=== PATIENT | female | born 1945 | race Caucasian/White ===

== ENCOUNTER 2023-05-21 10:17 | Outpatient (CLI) | payer MEDICARE, BC, SELFPAY | END 2023-05-21 10:18 | disposition home or self-care (01) | PROVIDERS: PCP Internal Medicine; Visit Provider Internal Medicine | DX: Z00.00 Encounter for general adult medical examination without abnormal findings (principal); E78.5 Hyperlipidemia, unspecified; I10 Essential (primary) hypertension; E66.9 Obesity, unspecified; Z13.21 Encounter for screening for nutritional disorder; M85.80 Other specified disorders of bone density and structure, unspecified site | CPT/HCPCS: 80048; 80061; 82306 ==

== ENCOUNTER 2023-06-14 10:27 | Outpatient (CLI) | payer MEDICARE, BC, SELFPAY ==
--- NOTE | 2023-06-14 11:30 | CRLHL7_ITS ---
For Patients: As a result of the Cures Act, medical imaging exams and procedure reports are released immediately into your electronic medical record. You may view this report before your referring provider. If you have questions, please contact your health care provider. BILATERAL SCREENING MAMMOGRAM WITH COMPUTER-AIDED DETECTION AND TOMOSYNTHESIS TECHNIQUE: CC and MLO views were obtained. These mammographic images have been obtained using full-field digital technique. These mammographic images were interpreted with the benefit of computer-aided detection. Breast tomosynthesis was used in this interpretation. COMPARISON FILM: 05/11/22, 05/10/21. FINDINGS: There are scattered areas of fibroglandular density. IMPRESSION: There is no radiographic evidence for malignancy. ASSESSMENT: BI-RADS Category 1: Negative RECOMMENDATION: Routine screening mammogram in 1 year. A lay language report of this examination will be provided to the patient. JUSTO MAN M.D. Diagnostic/Nuclear Medicine Radiologist [email or web address] VIANNEY:reanna Transcribed: 06/14/2023, 3:[address]/Dictated by: Justo Man MD @ 06/14/2023 12:11:00 PM (Electronically Signed)
== END 2023-06-14 10:28 | disposition home or self-care (01) ==
LOC: MAMMO 10:31
PROVIDERS: PCP Internal Medicine; Visit Provider Internal Medicine
DX: Z12.31 Encounter for screening mammogram for malignant neoplasm of breast (principal)
CPT/HCPCS: 77063; 77067

== ENCOUNTER 2024-03-31 10:43 | Outpatient (CLI) | payer MEDICARE, BC, SELFPAY ==
--- OUTSIDE RECORDS SUMMARY | 2024-03-31 10:45 | XMS_ITS | Clinical Summary ---
Author Organization [facility] Address [place], [place] [address] Care Team Providers Care Flooring Grader Name Role Phone Chad Gray MD Primary Care Provider [phone] Allergies Active Allergy Reactions Criticality Noted Date Comments Hydromorphone Nausea And Vomiting 09/24/2017 Morphine Nausea And Vomiting,Confusion 2014 Shellfish Derived Nausea And Vomiting,Angioedema 09/24/2017 Medications Medication Sig Dispensed Refills Start Date End Date Status SIMVASTATIN ORAL Take 20 mg by mouth once daily in the evening. Active amoxicillin (AMOXIL) 500 mg tablet Take 2,000 mg by mouth. Take 4 tabs (2000 mg) before dental appointments Active cholecalciferol (VITAMIN D3) 1,000 unit tablet Take 1,000 Units by mouth once daily. Active losartan (COZAAR) 25 mg tablet Take 25 mg by mouth once daily. Active CALCIUM ORAL Take 1 Tab by mouth 3 times daily. Active traMADol (ULTRAM) 50 mg tabletIndications:Pr imary osteoarthritis of right knee Take 1 tablet by mouth every 4 hours if needed for pain. 50 tablet 1 09/26/2017 Active Active Problems Problem Noted Date Diagnosed Date Primary osteoarthritis of right knee 09/25/2017 Essential hypertension 09/25/2017 Mild mitral regurgitation 04/06/2017 Mild aortic insufficiency 12/29/2014 Resolved Problems Problem Noted Date Diagnosed Date Resolved Date Osteoarthritis of right knee 03/15/2017 09/25/2017 Family History Medical History Relation Name Comments Coronary artery disease Brother Hypertension Brother Coronary artery disease Father Hypertension Father Depression Mother Relation Name Status Comments Brother Father Mother Social History Tobacco Use Types Packs/Day Years Used Date Smoking Tobacco: Never Smokeless Tobacco: Never Alcohol Use Standard Drinks/Week Comments Yes 0 (1 standard drink = 0.6 oz pur e alcohol) 2 drinks per month Sex and Gender Information Value Date Recorded Sex Assigned at Not on file Gender Identity Not on file Sexual Orientation Not on file Obstetrics History Last Filed Vital Signs Vital Sign Reading Time Taken Comments Blood Pressure 133/74 09/26/2017 11:57 AM CDT Pulse 71 09/26/2017 11:57 AM CDT Temperature 36.5 ??C (97.7 ??F) 09/26/2017 11:57 AM C DT Respiratory Rate 16 09/26/2017 11:57 AM CDT Oxygen Saturation 100% 09/26/2017 11:57 AM CDT Inhaled Oxygen Concentration - - Weight 75.5 kg (166 lb 7.2 oz) 09/25/2017 12:19 PM CDT Height 159 cm (5' 2.6) 09/24/2017 10:14 AM CDT Body Mass Index 29.86 09/24/2017 10:14 AM CDT Plan of Treatment Health Maintenance Due Date Last Done Comments Tdap 1956 Depression screening for age 12+ 1957 BMI (ht and wt on same day) for age 18+ 1963 Hepatitis C screening for age 18-79 1963 Tetanus booster 1965 Zoster (shingles) series for age 50+ (1 of 2) 04/17/19 95 RSV vaccine for adults or pr egnancy (1 - 1-dose 60+ series) 2005 DEXA/DXA scan for age 65+ 2010 Pneumococcal series for age 65+ (1 of 1 - PCV) 010 COVID-19 vaccine series (1 - 2022-24 season) 4 Influenza for age 65+ 03/16/2024 Medical Devices Implanted Type Area Gas Treater Device Identifier Shelf Expiration Date Model / Serial / Lot Patella Sz29 Antonietta Ii Rnd Michelle Pors - [id number] Implanted:Qty: 1 on 09/25/2017 by Gianni Dubon MD at [facility] Total Joint Right: Knee [employer] 07/01/2027 [id number] / [id number] / [id number] Cmnt Bone 40g Simplex Hv Gentamicin - [id number] Implanted:Qty: 1 on 09/25/2017 by Gianni Dubon MD at [facility] Right: Knee [employer] 03/15/2019 [id number] / [id number] / [id number] Baseplate Tib Rt Sz 2 Traffic I Manager Journey - [id number] Implanted:Qty: 1 on 09/25/2017 by Gianni Dubon MD at [facility] Right: Knee [employer] 05/13/2027 [id number] / [id number] / [id number] Size 4 Right Bi-Cruciate Stabilized Journey Femoral Component Implanted:Qty: 1 on 09/25/2017 by Gianni Dubon MD at [facility] Explanted:at [facility] (Quantity not on file) Right: Knee [employer] 04/03/2027 [id number] / [id number] / [id number] Insert Knee Rt Sz1-2 9mm Journey Ii Bcs Bi Cruc Stbz - [id number] Implanted:Qty: 1 on 09/25/2017 by Gianni Dubon MD at [facility] Right: Knee [employer] 07/22/2026 [id number] / [id number] / [id number] Advance Directives * Full Code (Latest Code Status on File) Date Activated Date Inactivated Comments 09/25/2017 4:41 PM 09/26/2017 6:29 PM * Full Code Date Activated Date Inactivated Comments 09/25/2017 11:25 AM 09/25/2017 11:50 AM Care Teams Flooring Grader Relationship Specialty Start Date End Date Chad Gray MD PCP - General Family Practice 12/10/14
--- OUTSIDE RECORDS SUMMARY | 2024-03-31 10:46 | XMS_ITS | Encounter Summary ---
[facility] Organization [facility] Address [address] [address] Care Team Providers Care Remote Sensing Program Manager Name Role Phone Chad Gray MD Primary Care Provider Encounter Details Date Type Department Care Team ([facility] st Contact Info) Description 08/11/2015 Telephone [facility] [address] [place], [place] [phone] [place] [address] [place] [id number] Social History Tobacco Use Types Packs/Day Years Used Date Smoking Tobacco: Never Assessed Sex and Gender Information Value Date Recorded Sex Assigned at Female 05/07/2021 8:38 AM CDT Gender Identity Female 05/07/2021 8:38 AM CDT Sexual Orientation Straight 05/07/2021 8: 38 AM CDT documented as of this encounter Plan of Treatment Not on file documented as of this encounter Visit Diagnoses Not on filedocumented in this encounter Care Teams Remote Sensing Program Manager Relationship Specialty [place] [address] [place] [address] PCP - General 10/17/10 documented as of this encounter
--- OUTSIDE RECORDS SUMMARY | 2024-03-31 10:46 | XMS_ITS | Encounter Summary ---
Author [facility] Address [address], [place] [address] Care Team Providers Care Substance Abuse Rn Name Role Phone Chad Gray MD Primary Care Provider Reason for Visit * Reason Comments ERRONEOUS ENTRY Encounter Details Date Type Department Care Team ([facility] st Contact Info) Description 11/12/2023 Telephone [facility] [address] [place] [address] Chad Gray MD [address] [place] [phone] ERRONEOUS ENTRY Social History Tobacco Use Types Packs/Day Years Used Date Smoking Tobacco: Never Smokeless Tobacco: Never Alcohol Use Standard Drinks/Week Comments Yes 2 (1 standard drink = 0.6 oz pure alcohol) Wine drinking is not a weekly thing PHQ-2 Answer Date Recorded PHQ-2 Score 0 05/11/2022 Sex and Gender Information Value Date Recorded Sex Assigned at Female 05/07/2021 8:38 AM CDT Gender Identity Female 05/07/2021 8:38 AM CDT Sexual Orientation Straight 05/07/2021 8: 38 AM CDT documented as of this encounter Nursing Notes * Fátima Jones - 11/12/2023 7:14 AM CDT Error documented in this encounter Plan of Treatment Not on file documented as of this encounter Visit Diagnoses Not on filedocumented in this encounter Care Teams Substance Abuse Rn Relationship Specialty [place] [address] [place] [address] PCP - General 10/17/10 documented as of this encounter
--- OUTSIDE RECORDS SUMMARY | 2024-03-31 10:46 | XMS_ITS | Clinical Summary ---
Author Organization [facility] Address [address] [address] Care Team Providers Care Brazer Resistance Name Role Phone Chad Gray MD Primary Care Provider [phone] Source Comments You are receiving this document as you are listed as the primary care provider,follow-up provider, or the patient has been referred to you for consultation.This is in compliance with the Medicare and[facility] EHR Incentive Program,which states Providers who transition their patient to another setting of careor provider of care or refers their patient to another provider of care shouldprovide summary care record for each transition of care or referral. [facility] Active Allergy Reactions Criticality Noted Date Comments Hydromorphone Nausea And Vomiting 11/04/2008 Morphine Nausea And Vomiting,Confusion 03/05/2009 Other 11/05/2008 PN: LW Other1: -NO KNOWN LATEX ALLERGY LW Other2: -NKA Review Food Intolerance 10/17/2004 PN: LW FI1: SHELLFISH = swelling/vomit/itch LW FI2: NKA Medications Medication Sig Dispensed Refills Start Date End Date Status cholecalciferol (VITAMIN D3) 1000 UNITS tablet 1 Tablet (1,000 Units) daily. 08/27/2008 Active CALCIUM OR Take 1 tablet by mouth 3 times daily. LW Addl Instr:Take with food. 08/27/2008 Active amoxicillin (AKA AMOXIL) 500 MG tablet Take 3 Tablets (1,500 mg) by mouth as needed (Prior to dental appointments). 03/10/2015 Active calcium carbonate-vitamin D (OS-DHIRAJ 500 WITH D) 500-200 MG-UNIT per tablet Take by mouth. Active losartan (COZAAR) 25 MG tabletIndications:H ypertension Take 1 Tablet (25 mg) by mouth daily. Indications: High Blood Pressure Disorder 90 Tablet 3 05/11/2022 Active simvastatin (ZOCOR) 20 MG tabletIndications:H igh Cholesterol Take 1 Tablet (20 mg) by mouth daily at bedtime. Indications: High Cholesterol 90 Tablet 3 05/11/2022 Active Active Problems Problem Noted Date Diagnosed Date IFG (impaired fasting glucose) 05/11/2022 Skin cancer, basal cell 05/10/2021 History of adenomatous polyp of colon 03/12/2020 Overview (03/12/2020): Last colonoscopy 04/30/19, next due 04/2024. Status post right knee replacement 12/03/2017 Essential hypertension 09/25/2017 Mild mitral regurgitation 04/06/2017 Dyslipidemia 03/15/2017 Osteopenia 04/06/2016 Overview (05/21/2020): Last DEXA 05/2020, next due 05/2025. Mixed incontinence 12/15/2014 Overview (02/17/2016): urge-predominant Obesity 02/23/2010 Resolved Problems Problem Noted Date Diagnosed Date Resolved Date Age-related nuclear cataract of right eye 09/16/2021 05/11/2022 Overview (09/16/2021): Added automatically from request for surgery [id number] Age-related nuclear cataract of left eye 09/16/2021 05/11/2022 Overview (09/16/2021): Added automatically from request for surgery [id number] Osteoarthritis of right knee 03/15/2017 04/02/2018 Impaired fasting glucose 12/11/2013 Immunizations Name Administration Dates Next Due Flu Vac (3+ yrs) 06/14/2014,05/04/2013 Flu Vac Preserv Free (3+yrs) 06/11/2012, 04/19/2011,05/09/2010, 009,05/16/2008 Influenza IIV3 (Trivalent) F loc Highdose, 65+ Yrs (27760) 05/06/2019,03/13/2018,03/15/2017, 016,03/30/2015 Influenza IIV4 (Quadrivalent ) Fluad, 65+ Yrs 05/11/2022,04/08/2020 Influenza IIV4 (Quadrivalent ) Fluzone, 65+ Yrs 05/02/2021 PCV13 (Prevnar) 03/10/2015 PPSV23 (Pneumovax) 09/22/2010 Pfizer Bivalent 12+ 04/14/2022 Pfizer Monovalent 12+ 12/01/2021 Pfizer Monovalent 12+ Purple Top 04/21/2021,08/17,08/18/2020 TDAP (ADACEL) 02/23/2010 Td 08/31/2003,08/16/1993 Td (7+ yrs) 04/03/2019 Zoster (Zostavax) 12/12/2013 Zoster RZV (Shingrix) 06/18/2020,04/08/2020 Family History Medical History Relation Name Comments Coronary Artery Disease Father Dad Hypertension Father Dad Myocardial Infarction Father Dad Depression Mother Mom Heart Disease Brother Bobby Hypertension Brother Bobby Amblyopia/Strabismus Negative Family History Cataract Negative Family History Diabetes Negative Family History Diabetes, Type II Negative Family History Glaucoma Negative Family History Macular Degeneration Negative Family History Retinal Detachment Negative Family History Relation Name Status Comments Father Dad (Age 76) Mother Mom (Age 65) Brother Bobby (Age 68) Social History Tobacco Use Types Packs/Day Years Used Date Smoking Tobacco: Never Smokeless Tobacco: Never Tobacco Cessation:Counseling Given: Not Answered Alcohol Use Standard Drinks/Week Comments Yes 2 (1 standard drink = 0.6 oz pure alcohol) Wine drinking is not a weekly thing PHQ-2 Answer Date Recorded PHQ-2 Score 0 05/11/2022 Sex and Gender Information Value Date Recorded Sex Assigned at Female 05/07/2021 8:38 AM CDT Gender Identity Female 05/07/2021 8:38 AM CDT Sexual Orientation Straight 05/07/2021 8: 38 AM CDT Last Filed Vital Signs Vital Sign Reading Time Taken Comments Blood Pressure 136/76 07/12/2022 11:39 AM ENVIRONMENTAL SERVICES MANAGER Pulse 60 07/12/2022 11:39 AM ENVIRONMENTAL SERVICES MANAGER Temperature 36.8 ??C (98.2 ??F) 11/09/2021 10:31 AM C DT Respiratory Rate 18 11/09/2021 10:45 AM CDT Oxygen Saturation 100% 11/09/2021 10:45 AM CDT Inhaled Oxygen Concentration - - Weight 77.1 kg (170 lb) 07/12/2022 11:31 AM ENVIRONMENTAL SERVICES MANAGER Height 157.5 cm (5' 2) 07/12/2022 11:31 AM ENVIRONMENTAL SERVICES MANAGER Body Mass Index 31.09 07/12/2022 11:31 AM ENVIRONMENTAL SERVICES MANAGER Plan of Treatment Health Maintenance Due Date Last Done Comments Prediabetes: HGBA1C 03/10/2016 03/10/2015 RSV (1 - 1-dose 75+ series) 2020 Medicare Annual Wellness Visit 05/11/2023 05/11/2022, 05/10/2021, 04/15/2020, Additional history exists COVID-19 Vaccine ( season) 2024 04/14/2022, 12/01/2021, 04/21/2021, Additional history exists Influenza (#1) 2024 05/11/2022, 04/15, 04/08/2020, Additional history exists Colonoscopy 04/30/2024 04/30/2019, 03/20/2009 Dexa 05/17/2025 05/17/2020, 03/17, 11/26/2012, Additional history exists DTaP/Tdap/Td (3 - Tdap) 04/03/2029 04/03/20 19, 02/23/2010, 08/31/2003, Additional history exists Pneumococcal 65+ Yrs Completed 03/10/2015, 09/23/19 11 Hep C Screening (Preventive Services) Completed 03/15/2017 Zoster/Shingles Completed 06/18/2020, 03/17, 12/12/2013 Cholesterol Discontinued 05/11/2022, 10/12/2020, 04/15/2020, Additional history exists HepA Aged Out No longer eligi ble based on patient's age to complete this topic HepB Aged Out No longer eligi ble based on patient's age to complete this topic Hib Aged Out No longer eligi ble based on patient's age to complete this topic IPV (Polio) Aged Out No longer eligi ble based on patient's age to complete this topic MCV4 Aged Out No longer eligi ble based on patient's age to complete this topic Medical Devices Implanted Type Area Senior Staff Psychologist Device Identifier Shelf Expiration Date Model / Serial / Lot Teccharly Esteban Iol [id number] 23.5d Implanted:Qty: 1 on 10/26/2021 by Kelsey Cordero MD at [facility] DEVICE Right: EYE [employer] 04/01/2024 [id number] / [id number] / NA Lens Iol Tecnis [id number] 23.0 - [id number] Implanted:Qty: 1 on 11/09/2021 by Kelsey Cordero MD at [facility] DEVICE Left: EYE [employer] 09/13/2024 [id number] / [id number] / NA Procedures Procedure Name Priority Date/Time Associated Diagnosis Comments LIPID PANEL & DIRECT LDL (IF NEEDED) Routine 05/11/2022 1:31 PM CDT Dyslipidemia DXA BONE DENSITY SPINE/HIP INC VERT FX ASSESS Routine 05/17/2020 11:57 AM ENVIRONMENTAL SERVICES MANAGER Asymptomatic menopausal state ENDOSCOPY, COLON, SCREENING/DIAGNOSTI C Routine 04/30/2019 2:31 PM CDT Screen for colon cancer HEPATITIS C ANTIBODY, WITH REFLEX Routine 03/15/2017 11:45 AM CDT Need for hepatitis C screening test HGB A1C Routine 03/10/2015 11:18 AM CDT Impaired fasting glucose from Last 3 Months or Most Recently Relevant to Health Maintenance Results * Lipid Panel and Direct LDL(If Needed) (05/11/2022 1:31 PM CDT) [facility] Cholesterol 163 0 - 199 mg/dL 05/11/2022 2:20 PM CDT [facility] Triglyceride 123 <=149 mg/dL 05/11/2022 2:20 PM [facility] HDL Cholesterol 58 >=40 mg/dL 2 2:20 PM T [facility] LDL, Calculated 80 <130 mg/dL 2 2:20 PM [facility] Non HDL Chol, Calculated 105 <=159 mg/dL 05/11/2022 2:20 PM [facility] Cholesterol/HDL Ratio 2.8 05/11/2022 2:20 PM [facility] Hours Fasting 16 05/11/2022 2:20 PM T [facility] Blood Venipuncture / Unknown 05/11/2022 1:31 PM CDT 05/11/2022 1:31 PM CDT Chad Gray MD LAB_1 [facility] [address] [place] [address], [facility] [phone] * DXA Bone Density Spine/Hip Including Vertebral Fracture Assessment (05/17/2020 11:57 AM ENVIRONMENTAL SERVICES MANAGER) Anatomical Region Laterality Modality Spine, Hip Radiographic [place] ging Narrative 05/20/2020 1:47 PM ENVIRONMENTAL SERVICES MANAGER CLINIC DXA REPORT Patient Name: ??Jessenia Mcwilliams [place]: ??Rustam Lynne PA-C Densitometer: ??HoloLearnBoost W (S/N [id number]) BERTRAND BONE OSTEOPOROSIS RISK FACTORS FROM PATIENT QUESTIONNAIRE: ?? The patient is a 75 y.o.female: Calcium intake is adequate. There is no self-reported history of hip, spine, pelvis, humerus, or wrist fracture; no family history of spine fracture; and no family history of hip fracture. She reports no fall(s) over the past year. BONE MINERAL DENSITY: Lumbar Spine Vertebrae Included: L1;L2;L3;L4 Bone Mineral Density (gm/cm2): 1.021 T-Score: -0.2 Z-Score: 2.2 Total Hip Bone Mineral Density (gm/cm2): 0.694 T-Score: -2 Z-Score: -0.2 Femoral Neck Bone Mineral Density (gm/cm2): 0.768 T-Score: -0.7 Z-Score: 1.4 FRAX 10 year probability major osteoporotic fracture: 11.5% 10 year probability hip fracture: 1.6% COMPARISON TO PRIOR STUDY: Date of prior study: 04/04/2016 Lumbar spine change: +6.0% Total hip change: no significant change outside of densitometer precision error VERTEBRAL FRACTURE ASSESSMENT: No vertebral fractures from T4 through L4 ASSESSMENT: 1. Low bone mass, based on T-score(s) at total hip 2. Patient is at mildly increased risk of fracture, based on age, fracture history, bone mineral density at all skeletal sites, and presence or absence of other risk factors. RECOMMENDATIONS: ?? 1. Maintain optimal calcium and vitamin D intake 2. Repeat DXA in 5 years FRAX Explanation: The 10 year risks of hip and major osteoporotic fractures (clinical spine, forearm, hip or shoulder fracture) are calculated by the FRAX algorithm based on femoral neck bone density, age, gender, race/ethnicity, weight, height, previous fracture, parental hip fracture, smoking status, glucocorticoid intake, history of RA, secondary osteoporosis, and high alcohol consumption. FRAX Fracture Risk Categories in terms of major osteoporotic fractures: < 10% = low fracture risk ? 10% and <15% = mildly increased fracture risk ? 15% and <20% = moderately increased fracture risk ? 20% and <30% = high fracture risk ? 30% = very high fracture risk National Osteoporosis Foundation Treatment Guideline A clinician may consider FDA-approved medical therapies in postmenopausal women and men aged 50 years and older, if one or more of the following is present (clinical correlation required and therapy may not always be indicated): 1. The patient has a hip or vertebral fracture. 2. T-score ? -2.5 at the femoral neck, hip, or spine after appropriate evaluation to exclude secondary causes. 3. Low bone mass (T-score between -1.0 and -2.5 at the femoral neck, hip or spine) and a 10-year probability of a hip fracture ? 3% or a 10-year probability of a major osteoporosis-related fracture ? 20% based on the FRAX scores. Chad Gray MD RAD DEXA * Colonoscopy (04/30/2019 2:31 PM CDT) Anatomical Region Laterality Modality Other 04/30/2019 2:31 PM CDT Narrative 04/30/2019 2:31 PM CDT Patient Name: Jessenia Mcwilliams Procedure Date: 04/30/2019 2:31 PM Date of : 1945 Admit Type: Outpatient Age: 74 Gender: Female Note Status: Finalized Attending MD: Jaya Spann MD Procedure: ? Colonoscopy Indications: ? Screening for colorectal malignant ? neoplasm Providers: ? Jaya Spann MD, Elizabeth ? TONO Zarate Patient Profile: ? This is a 74 year old woman who had a ? normal screening colonoscopy in ? February of 2009. She presents today ? for another screening exam, and she ? denies bowel complaints. There is no ? family history of colon polyps or ? colon cancer. Referring MD: ?Chad Gray MD Medicines: ? Midazolam 1.5 mg IV, Fentanyl 100 ? micrograms IV Complications: ? No immediate complications. Procedure: ? After I obtained informed consent, ? the scope was passed under direct ? vision. Throughout the procedure, the ? patient's blood pressure, pulse, and ? oxygen saturations were monitored ? continuously. The [id number] was ? introduced through the anus and ? advanced to 1 cm into the ileum. The ? colonoscopy was performed without ? difficulty. The patient tolerated the ? procedure well. The quality of the ? bowel preparation was good. Findings: ? The perianal and digital rectal examinations were ? normal. ? The terminal ileum appeared normal. ? A 2 mm polyp was found in the sigmoid colon. The ? polyp was sessile. The polyp was removed with a cold ? biopsy forceps. Resection and retrieval were complete. ? A 4 mm polyp was found in the rectum. The polyp was ? sessile. The polyp was removed with a cold snare. ? Resection and retrieval were complete. ? Multiple small-mouthed diverticula were found in the ? sigmoid colon. ? The exam was otherwise without abnormality on direct ? and retroflexion views. Moderate Sedation: ? Moderate (conscious) sedation was administered by the ? endoscopy nurse and supervised by the endoscopist. ? The following parameters were monitored: oxygen ? saturation, heart rate, blood pressure, and response ? to care. Total physician intraservice time was 23 ? minutes. Impression: ?- Two small polyps (removed) mild ? diverticulosis, otherwise normal ? colon and terminal ileum. Recommendation: ?- Jessenia Newman Mcwilliams was reassured. ? - Await pathology results. ? - If either of the polyps is ? adenomatous, then repeat the ? colonoscopy for surveillance in 5 ? years. ? - If both of the polyps are ? hyperplastic, then no further ? colonoscopies because of age. ? - Return to see Dr. Chad Gray as ? needed. Procedure Code(s): ?? --- Professional --- ? 53681, Colonoscopy, flexible; with ? removal of tumor(s), polyp(s), or ? other lesion(s) by snare technique ? 15912, 59, Colonoscopy, flexible; ? with biopsy, single or multiple ? 13275, Moderate sedation; each ? additional 15 minutes intraservice ? time ? G0500, Moderate sedation services ? provided by the same physician or ? other qualified health care ? professional performing a ? gastrointestinal endoscopic service ? that sedation supports, requiring the ? presence of an independent trained ? observer to assist in the monitoring ? of the patient's level of ? consciousness and physiological ? status; initial 15 minutes of ? intra-service time; patient age 5 ? years or older (additional time may ? be reported with 91158, as ? appropriate) Diagnosis Code(s): ?? --- Professional --- ? Z12.11, Encounter for screening for ? malignant neoplasm of colon ? D12.5, Benign neoplasm of sigmoid ? colon ? K62.1, Rectal polyp ? K57.30, Diverticulosis of large ? intestine without perforation or ? abscess without bleeding CPT copyright 2018 [employer]. All rights reserved. The codes documented in this report are preliminary and upon elevator tender review may be revised to meet current compliance requirements. Jaya Spann MD 04/30/2019 2:16:04 PM This document has been electronically signed. Number of Addenda: 0 Note Initiated On: 04/30/2019 2:31 PM ? Endoscopy Report Procedure Note Jaya Spann MD - 04/30/2019 Patient Name: Jessenia Mcwilliams Procedure Date: 04/30/2019 2:31 PM Date of : 1945 Admit Type: Outpatient Age: 74 Gender: Female Note Status: Finalized Attending MD: Jaya Spann MD Procedure: Colonoscopy Indications: Screening for colorectal malignant neoplasm Providers: Jaya Spann MD, Elizabeth Zarate RN Patient Profile: This is a 74 year old woman who had a normal screening colonoscopy in February of 2009. She presents today for another screening exam, and she denies bowel complaints. There is no family history of colon polyps or colon cancer. Referring MD: Chad Gray MD Medicines: Midazolam 1.5 mg IV, Fentanyl 100 micrograms IV Complications: No immediate complications. Procedure: After I obtained informed consent, the scope was passed under direct vision. Throughout the procedure, the patient's blood pressure, pulse, and oxygen saturations were monitored continuously. The [id number] was introduced through the anus and advanced to 1 cm into the ileum. The colonoscopy was performed without difficulty. The patient tolerated the procedure well. The quality of the bowel preparation was good. Findings: The perianal and digital rectal examinations were normal. The terminal ileum appeared normal. A 2 mm polyp was found in the sigmoid colon. The polyp was sessile. The polyp was removed with a cold biopsy forceps. Resection and retrieval were complete. A 4 mm polyp was found in the rectum. The polyp was sessile. The polyp was removed with a cold snare. Resection and retrieval were complete. Multiple small-mouthed diverticula were found in the sigmoid colon. The exam was otherwise without abnormality on direct and retroflexion views. Moderate Sedation: Moderate (conscious) sedation was administered by the endoscopy nurse and supervised by the endoscopist. The following parameters were monitored: oxygen saturation, heart rate, blood pressure, and response to care. Total physician intraservice time was 23 minutes. Impression: - Two small polyps (removed) mild diverticulosis, otherwise normal colon and terminal ileum. Recommendation: - Jessenia Mcwilliams was reassured. - Await pathology results. - If either of the polyps is adenomatous, then repeat the colonoscopy for surveillance in 5 years. - If both of the polyps are hyperplastic, then no further colonoscopies because of age. - Return to see Dr. Chad Gray as needed. Procedure Code(s): --- Professional --- 21274, Colonoscopy, flexible; with removal of tumor(s), polyp(s), or other lesion(s) by snare technique 46189, 59, Colonoscopy, flexible; with biopsy, single or multiple 97262, Moderate sedation; each additional 15 minutes intraservice time G0500, Moderate sedation services provided by the same physician or other qualified health special needs child caregiver performing a gastrointestinal endoscopic service that sedation supports, requiring the presence of an independent trained observer to assist in the monitoring of the patient's level of consciousness and physiological status; initial 15 minutes of intra-service time; patient age 5 years or older (additional time may be reported with 77940, as appropriate) Diagnosis Code(s): --- Professional --- Z12.11, Encounter for screening for malignant neoplasm of colon D12.5, Benign neoplasm of sigmoid colon K62.1, Rectal polyp K57.30, Diverticulosis of large intestine without perforation or abscess without bleeding CPT copyright 2018 [employer]. All rights reserved. The codes documented in this report are preliminary and upon elevator tender review may be revised to meet current compliance requirements. Jaya Spann MD 04/30/2019 2:16:04 PM This document has been electronically signed. Number of Addenda: 0 Note Initiated On: 04/30/2019 2:31 PM Endoscopy Report Chad Gray MD PN GI PROCEDURE SCOTTIE ANTONY * Hepatitis C Virus [place] with Reflex (03/15/2017 11:45 AM CDT) Hepatitis C Antibody Nonreactive Nonreactive PN SOFT 03/15/2017 11:4 5 AM CDT 03/15/2017 3:26 PM CDT Narrative PN SOFT - 03/15/2017 4:46 PM [place] [address] CLIA number [id number] Chad Gray MD LAB_1 Performing Organization Address [facility] de Phone Number PN SOFT [address] [place] [id number] * (ABNORMAL) Hgb A1c (03/10/2015 11:18 AM CDT) HGB A1C 5.9(H) 4.0 - 5.6 % HP CONVERSION 03/10/2015 11:1 8 AM CDT 03/10/2015 12:41 PM CDT Narrative HP CONVERSION - 03/10/2015 3:08 PM CDT Performed at [address] [address] Chad Gray MD LAB_1 HP CONVERSION from Last 3 Months or Most Recently Relevant to Health Maintenance Advance Directives Documents on File Type Date Recorded Patient Entry Level Account Executive Expl anation HEALTHCARE DIRECTIVE 05/14/2021 [facility] ARE DIRECTIVE 04/21/2021 Care Teams Brazer Resistance Relationship Specialty [place] [address] [address] [place] [address] PCP - General 10/17/10
[2024-03-31 15:30] LABS: PCR FLU A Negative PCR FLU A (Negative); PCR FLU B Negative PCR FLU B (Negative); PCR RSV Negative PCR RSV (Negative); SARS PCR* POSITIVE SARS-CoV-2 (Negative)
== END 2024-03-31 10:44 | disposition home or self-care (01) ==
LOC: KYNREF 10:43
PROVIDERS: PCP Nurse Practitioner Family; Visit Provider Nurse Practitioner Family
DX: J11.1 Influenza due to unidentified influenza virus with other respiratory manifestations (principal)
CPT/HCPCS: 87631

== ENCOUNTER 2024-06-24 09:22 | Outpatient (CLI) | payer MEDICARE, BC, SELFPAY ==
--- OUTSIDE RECORDS SUMMARY | 2024-06-24 09:27 | XMS_ITS | Clinical Summary ---
Author Organization [facility] Address [address], [place] [address] Care Team Providers Care Open Winder Name Role Phone Chad Gray MD Primary Care Provider Source Comments You are receiving this document as you are listed as the primary care provider,follow-up provider, or the patient has been referred to you for consultation.This is in compliance with the Medicare and[facility] EHR Incentive Program,which states Providers who transition their patient to another setting of careor provider of care or refers their patient to another provider of care shouldprovide summary care record for each transition of care or referral. [employer] Allergies Active Allergy Reactions Criticality Noted Date [...] (09/16/2021): Added automatically from request for surgery [id number] Age-related nuclear cataract of left eye 09/16/2021 05/11/2022 Overview (09/16/2021): Added automatically from request for surgery [id number] Osteoarthritis of right knee 03/15/2017 04/02/2018 Impaired fasting glucose 12/11/2013 Immunizations Name Administration Dates Next Due Flu Vac (3+ yrs) 06/14/2014,05/04/2013 Flu Vac Preserv Free (3+yrs) 06/11/2012, 04/19/2011,05/09/2010, 009,05/16/2008 Influenza IIV3 (Trivalent) F loc Highdose, 65+ Yrs (54522) 05/06/2019,03/13/2018,03/15/2017, 016,03/30/2015 Influenza IIV4 (Quadrivalent ) Fluad, [...] Comments Blood Pressure 136/76 07/12/2022 11:39 AM FRENCH EDGE OPERATOR Pulse 60 07/12/2022 11:39 AM FRENCH EDGE OPERATOR Temperature 36.8 C (98.2 F) 11/09/2021 10:31 AM CDT Respiratory Rate 18 11/09/2021 10:45 AM CDT Oxygen Saturation 100% 11/09/2021 10:45 AM CDT Inhaled Oxygen Concentration - - Weight 77.1 kg (170 lb) 07/12/2022 11:31 AM FRENCH EDGE OPERATOR Height 157.5 cm (5' 2) 07/12/2022 11:31 AM FRENCH EDGE OPERATOR Body Mass Index 31.09 07/12/2022 11:31 AM FRENCH EDGE OPERATOR Plan of Treatment Health Maintenance Due Date [...] this topic Medical Devices Implanted Type Area Semi Automatic Sewing Machine Operator Device Identifier Shelf Expiration Date Model / Serial / Lot Tecnis Eyhance Iol [id number] 23.5d Implanted:Qty: 1 on 10/26/2021 by Kelsey Cordero MD at [facility] DEVICE Right: EYE [employer] 04/01/2024 [id number] / [id number] / NA Lens Iol Tecnis Zcb00 23.0 - [id number] Implanted:Qty: 1 on 11/09/2021 by Kelsey Cordero MD at [facility] DEVICE Left: EYE [employer] 09/13/2024 [id number] / [id number] / NA Procedures Procedure Name Priority Date/Time Associated Diagnosis Comments LIPID PANEL & DIRECT LDL (IF NEEDED) Routine 05/11/2022 1:31 PM CDT Dyslipidemia DXA BONE DENSITY SPINE/HIP INC VERT FX ASSESS Routine 05/17/2020 11:57 AM FRENCH EDGE OPERATOR Asymptomatic menopausal state ENDOSCOPY, COLON, SCREENING/DIAGNOSTI C [...] Direct LDL(If Needed) (05/11/2022 1:31 PM CDT) [facility] Cholesterol 163 0 - 199 mg/dL 05/11/2022 2:20 PM CDT [facility] Triglyceride 123 <=149 mg/dL 05/11/2022 2:20 PM CDT [facility] HDL Cholesterol 58 >=40 mg/dL 2 2:20 PM T [facility] LDL, Calculated 80 <130 mg/dL 2 2:20 PM T [facility] Non HDL Chol, Calculated 105 <=159 mg/dL 05/11/2022 2:20 PM T [facility] Cholesterol/HDL Ratio 2.8 05/11/2022 2:20 PM T [facility] Hours Fasting 16 05/11/2022 2:20 PM T [facility] Blood Venipuncture / Unknown 05/11/2022 1:31 PM CDT 05/11/2022 1:31 PM CDT Chad Gray MD LAB_1 [facility] [address] [place] [address], [facility] [phone] * DXA Bone Density Spine/Hip Including Vertebral Fracture Assessment (05/17/2020 11:57 AM FRENCH EDGE OPERATOR) Anatomical Region Laterality Modality Spine, Hip Radiographic [place] ging Narrative 05/20/2020 1:47 PM FRENCH EDGE OPERATOR CLINIC DXA REPORT Patient Name: Jessenia Mcwilliams [place]: Rustam Lynne PA-C Densitometer: [employer] W (S/N [id number]) BERTRAND BONE OSTEOPOROSIS RISK FACTORS FROM PATIENT QUESTIONNAIRE: The patient is a 75 y.o.female: Calcium [...] or absence of other risk factors. RECOMMENDATIONS: 1. Maintain optimal calcium and vitamin D [...] and oxygen saturations were monitored continuously. The [id number] was introduced through the anus and advanced [...] as needed. Procedure Code(s): --- Professional --- 38187, Colonoscopy, flexible; with removal of tumor(s), polyp(s), or other lesion(s) by snare technique 41044, 59, Colonoscopy, flexible; with biopsy, single or multiple 21182, Moderate sedation; each additional 15 minutes intraservice time G0500, Moderate sedation services provided by the same physician or other qualified health senior caregiver performing a gastrointestinal endoscopic service that sedation supports, requiring the presence of an independent trained observer to assist in the monitoring of the patient's level of consciousness and physiological status; initial 15 minutes of intra-service time; patient age 5 years or older (additional time may be reported with 51969, as appropriate) Diagnosis Code(s): --- Professional --- Z12.11, Encounter for screening for malignant neoplasm of colon D12.5, Benign neoplasm of sigmoid colon K62.1, Rectal polyp K57.30, Diverticulosis of large intestine without perforation or abscess without bleeding CPT copyright 2018 [employer]. All rights reserved. The codes documented in this report are preliminary and upon project estimator review may be revised to meet current compliance requirements. Jaya Spann MD 04/30/2019 2:16:04 PM This document has been electronically signed. Number of Addenda: 0 Note Initiated On: 04/30/2019 2:31 PM Endoscopy Report Procedure Note Jaya Spann MD [...] and oxygen saturations were monitored continuously. The [id number] was introduced through the anus and advanced [...] as needed. Procedure Code(s): --- Professional --- 31837, Colonoscopy, flexible; with removal of tumor(s), polyp(s), or other lesion(s) by snare technique 77168, 59, Colonoscopy, flexible; with biopsy, single or multiple 54872, Moderate sedation; each additional 15 minutes intraservice time G0500, Moderate sedation services provided by the same physician or other qualified health senior caregiver performing a gastrointestinal endoscopic service that sedation supports, requiring the presence of an independent trained observer to assist in the monitoring of the patient's level of consciousness and physiological status; initial 15 minutes of intra-service time; patient age 5 years or older (additional time may be reported with 78914, as appropriate) Diagnosis Code(s): --- Professional --- Z12.11, Encounter for screening for malignant neoplasm of colon D12.5, Benign neoplasm of sigmoid colon K62.1, Rectal polyp K57.30, Diverticulosis of large intestine without perforation or abscess without bleeding CPT copyright 2018 [employer]. All rights reserved. The codes documented in this report are preliminary and upon project estimator review may be revised to meet current compliance requirements. Jaya Spann MD 04/30/2019 2:16:04 PM This document has been electronically signed. Number of Addenda: 0 Note Initiated On: 04/30/2019 2:31 PM Endoscopy Report Chad Gray MD ET GI PROCEDURE ORDE ARPAN * Hepatitis C Virus [place] with Reflex (03/15/2017 11:45 AM CDT) Pathologist [facility] Hepatitis C Antibody Nonreactive Nonreactive PN SOFT 03/15/2017 11:4 5 AM CDT 03/15/2017 3:26 PM CDT Narrative PN SOFT - 03/15/2017 4:46 [place] [address] CLIA number [id number] Chad Gray MD LAB_1 Performing Organization Address [facility] de Phone Number PN SOFT [address] [place] [id number] * (ABNORMAL) Hgb A1c (03/10/2015 11:18 AM CDT) Pathologist [facility] HGB A1C 5.9(H) 4.0 - 5.6 % HP CONVERSION 03/10/2015 11:1 8 AM CDT 03/10/2015 12:41 PM CDT Narrative HP CONVERSION - 03/10/2015 3:08 [place] [address] Chad Gray MD LAB_1 Performing Organization Address [facility] Co de Phone Number HP CONVERSION from Last 3 Months or Most Recently Relevant to Health Maintenance Advance Directives Documents on File Type Date Recorded Patient Fuel Oil Truck Driver Expl anation HEALTHCARE DIRECTIVE 05/14/2021 [facility] ARE DIRECTIVE 04/21/2021 Care Teams Open Winder Relationship Specialty [place] [address] [place] [address] PCP - General 10/17/10
--- OUTSIDE RECORDS SUMMARY | 2024-06-24 09:27 | XMS_ITS | Encounter Summary ---
Author Organization [facility] Address [address] [address] Care Team Providers Care Tapper Shank Name Role Phone Chad Gray MD Primary Care Provider [phone] Encounter Details Date Type Department Care Team (Late st Contact Info) Description 08/11/2015 Telephone [facility] [address] [place], [place] [address] [place] [address] [place] [address] Social History Tobacco Use Types Packs/Day Years [...] on filedocumented in this encounter Care Teams Tapper Shank Relationship Specialty [place] [address] [place] [id number] PCP - General 10/17/10 documented as of this encounter
--- OUTSIDE RECORDS SUMMARY | 2024-06-24 09:27 | XMS_ITS | Clinical Summary ---
Author Organization [facility] Address [place], [place] [address] Care Team Providers Care Commercial Loan Administrator Name Role Phone Chad Gray MD Primary Care Provider [phone] Allergies Active Allergy Reactions Criticality Noted Date Comments Hydromorphone Nausea And Vomiting 09/24/2017 Morphine Nausea And Vomiting,Confusion 2014 Shellfish Derived Nausea And Vomiting,Angioedema 09/24/2017 Medications SIMVASTATIN ORAL Take 20 mg by mouth [...] times daily. Active traMADol (ULTRAM) 50 mg tabletIndications: Primary osteoarthritis of right knee Take 1 tablet by mouth every 4 hours if needed for pain. 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 Gender Identity Not on file Sexual Orientation Not on file Obstetrics History Last Filed Vital Signs Vital Sign Reading Time Taken Comments Blood Pressure 133/74 09/26/2017 11:57 AM CDT Pulse 71 09/26/2017 11:57 AM CDT Temperature 36.5 C (97.7 F) 09/26/2017 11:57 AM CDT Respiratory Rate 16 09/26/2017 11:57 AM CDT [...] age 50+ (1 of 2) 04/17/19 95 DEXA/DXA scan for age 65+ 2010 Pneumococcal series for age 65+ (1 of 1 - PCV) 010 RSV vaccine for adults or pr egnancy (1 - 1-dose 75+ series) 2020 COVID-19 vaccine series ( - 2023-25 season) 4 Influenza for age 65+ 03/16/2024 Medical Devices Implanted Type Area Bed Placement Coordinator Device Identifier Shelf Expiration Date Model / Serial / Lot Patella Sz29 Antonietta Ii Rnd Michelle Dudley - [id number] Implanted:Qty: 1 on 09/25/2017 by Gianni Dubon MD at [facility] Total Joint Right: Knee [employer] 07/01/2027 [id number] / [id number] / [id number] Cmnt Bone 40g Simplex Hv Gentamicin - [id number] Implanted:Qty: 1 on 09/25/2017 by Gianni Dubon MD at [facility] Right: Knee [employer] 03/15/2019 [id number] / [id number] / [id number] Baseplate Tib Rt Sz 2 Postal Service Window Clerk Journey - [id number] Implanted:Qty: 1 on 09/25/2017 by Gianni Dubon MD at [facility] Right: Knee [employer] 05/13/2027 [id number]# / [id number] / [id number] Size 4 Right Bi-Cruciate Stabilized Journey Femoral Component Implanted:Qty: 1 on 09/25/2017 by Gianni Dubon MD at [facility] Explanted:at [facility] (Quantity not on file) Right: Knee [employer] 04/03/2027 [id number] / [id number] / [id number] Insert Knee Rt Sz1-2 9mm Journey Ii Bcs Bi Cruc Stbz - [id number] Implanted:Qty: 1 on 09/25/2017 by Gianni Dubon MD at [facility] Right: Knee [employer] 07/22/2026 [id number] / [id number] / [id number] Insurance MEDICARE PART B HB ONLY MR BC [place] BL[place]OSS [place] BLUE HB ONLY MEDICARE PART B HB ONLY MEDICARE PART A HB ONLY BLUE CROSS [place] BLUE MR PB ONLY Advance Directives * Full Code (Latest Code Status on File) Date Activated Date Inactivated Comments 09/25/2017 4:41 PM 09/26/2017 6:29 PM * Full Code Date Activated Date Inactivated Comments 09/25/2017 11:25 AM 09/25/2017 11:50 AM Care Teams Commercial Loan Administrator Relationship Specialty Start Date End Date Chad Gray MD PCP - General Family Practice 12/10/14
== END 2024-06-24 09:23 | disposition home or self-care (01) ==
PROVIDERS: PCP Nurse Practitioner Family; Visit Provider Nurse Practitioner Family
DX: I10 Essential (primary) hypertension (principal); E78.5 Hyperlipidemia, unspecified; E66.9 Obesity, unspecified; Z13.0 Encounter for screening for diseases of the blood and blood-forming organs and certain disorders involving the immune mechanism
CPT/HCPCS: 80053; 80061; 85025

== ENCOUNTER 2024-07-03 14:47 | Outpatient (CLI) | payer MEDICARE, BC, SELFPAY ==
--- NOTE | 2024-07-03 15:00 | CRLHL7_ITS ---
For Patients: As a result of the Century Cures Act, medical imaging exams and procedure reports are released immediately into your electronic medical record. You may view this report before your referring provider. If you have questions, please contact your health care provider. DXA BONE MINERAL DENSITY STUDY Reason for exam: Osteopenia. Current height (in): 62. Weight (lb): 178. Menopause age: 45. Ethnicity: White. 1. Have you had a previous hip or vertebral fracture? No. 2. Have you had any fractures during your adult life which did not result from significant trauma (e.g., auto accident)? No. 3. Did either of your parents have a hip fracture? No. 4. Do you smoke? No. 5. Have you ever taken Glucocorticoids? No. 6. Do you have rheumatoid arthritis? No. 7. Do you have secondary osteoporosis? No. 8. Do you drink 3 or more alcoholic drinks per day? No. 9. Are you being treated for osteoporosis? No. 10. Have you ever taken any of the following medications: Actonel, Evista, Fosamax, Miacalcin, Reclast, Boniva, Forteo, HRT (i.e., estrogen/hormone therapy), Protelos, Prolia, Vitamin D, Calcium, other ??? please specify. ANSWER: Yes, calcium. 11. Do you have any of the following medical conditions: Anorexia or bulimia, asthma or emphysema, end stage renal disease, hyperparathyroidism, any seizure disorders, cancer, inflammatory bowel diseases, hysterectomy, other ??? please specify. ANSWER: No. 12. What was your maximum height (inches)? 63. 13. Do you perform weight bearing exercise regularly? Yes. 14. Do you regularly consume dairy products? Yes. 15. Do you drink caffeinated beverages? Yes. 16. At what age did your period start? 13. 17. Are you premenopausal? No. 18. How many full-term pregnancies have you had? 2. 19. Have you ever missed your period for more than 6 months in a row (not including or menopause)? No. TECHNIQUE: Bone mineral density study was performed using the [employer]. FINDINGS: The results of the study expressed as bone mineral density (BMD) are as follows: Lumbar spine L1, L3, L4: BMD: 1.018 g/cm2. T-score: -0.3. Z-score: 2.3 Neck Left: BMD: 0.660 g/cm2. T-score: -1.7. Z-score: 0.6 Right: BMD: 0.601 g/cm2. T-score: -2.2. Z-score: 0.0 Total Left: BMD: 0.719 g/cm2. T-score: -1.8. Z-score: 0.2 Right: BMD: 0.712 g/cm2. T-score: -1.9. Z-score: 0.1 IMPRESSION: Osteopenia. *Comparison exams done prior to 12/2019 were performed on different unit, [employer]. FRAX 10-year Fracture Risk Major Osteoporotic Fracture: 15% Hip Fracture: 4.4% Reported Risk Factors: [place] () Neck BMD=0.601, BMI=32.6 Aldo Boo M.D. Diagnostic Radiologist [email or web address] NAHED/[email or web address] gary/Dictated by: Aldo Boo MD @ 07/04/2024 8:50:00 AM (Electronically Signed)
== END 2024-07-03 14:48 | disposition home or self-care (01) ==
LOC: RAD 14:50
PROVIDERS: PCP Nurse Practitioner Family; Visit Provider Nurse Practitioner Family
DX: M85.80 Other specified disorders of bone density and structure, unspecified site (principal); M85.89 Other specified disorders of bone density and structure, multiple sites; Z78.0 Asymptomatic menopausal state
CPT/HCPCS: 77080

== ENCOUNTER 2024-08-01 14:25 | Outpatient (CLI) | payer MEDICARE, BC, SELFPAY ==
--- NOTE | 2024-08-01 15:00 | CRLHL7_ITS ---
For Patients: As a result of the Century Cures Act, medical imaging exams and procedure reports are released immediately into your electronic medical record. You may view this report before your referring provider. If you have questions, please contact your health care provider. BILATERAL SCREENING MAMMOGRAM WITH COMPUTER-AIDED DETECTION AND TOMOSYNTHESIS TECHNIQUE: CC and MLO views were obtained. These mammographic images have been obtained using full-field digital technique. These mammographic images were interpreted with the benefit of computer-aided detection. Breast Tomosynthesis was used in this interpretation. COMPARISON FILM: 06/14/23, 05/10/21, 05/11/22. FINDINGS: There are scattered areas of fibroglandular density. IMPRESSION: There is no radiographic evidence for malignancy. ASSESSMENT: BI-RADS Category 1: Negative RECOMMENDATION: Routine screening mammogram in 1 year. A lay language report of this examination will be provided to the patient. Jamie Chan M.D. Diagnostic/Nuclear Medicine Radiologist [email or web address] VIANNEY/dimas SP/Dictated by: Jamie Chan MD @ 08/06/2024 11:47:00 AM (Electronically Signed)
== END 2024-08-01 14:26 | disposition home or self-care (01) ==
PROVIDERS: PCP Nurse Practitioner Family; Visit Provider Nurse Practitioner Family
DX: Z12.31 Encounter for screening mammogram for malignant neoplasm of breast (principal)
CPT/HCPCS: 77063; 77067

== ENCOUNTER 2025-06-26 10:14 | Outpatient (CLI) | payer MEDICARE, BC, SELFPAY | END 2025-06-26 10:15 | disposition home or self-care (01) | PROVIDERS: PCP Nurse Practitioner Family; Visit Provider Nurse Practitioner Family | DX: Z00.00 Encounter for general adult medical examination without abnormal findings (principal); E78.5 Hyperlipidemia, unspecified; Z13.0 Encounter for screening for diseases of the blood and blood-forming organs and certain disorders involving the immune mechanism | CPT/HCPCS: 80053; 80061; 85025 ==